=== PATIENT | male | born 1990 | race Caucasian/White ===

== ENCOUNTER 2016-12-03 19:26 | Emergency (ER) | payer SELFPAY | END 2016-12-03 20:58 | disposition home or self-care (01) | LOC: D.ER 19:26 | DX: S93.601A Unspecified sprain of right foot, initial encounter (principal); X58.XXXA Exposure to other specified factors, initial encounter; Y93.89 Activity, other specified; Y92.89 Other specified places as the place of occurrence of the external cause; F17.200 Nicotine dependence, unspecified, uncomplicated ==

== ENCOUNTER 2017-08-15 18:14 | Emergency (ER) | payer BC | END 2017-08-15 21:16 | disposition home or self-care (01) | LOC: D.ER 18:14 | DX: M54.5 Low back pain (principal); M62.838 Other muscle spasm; M54.30 Sciatica, unspecified side; F17.200 Nicotine dependence, unspecified, uncomplicated ==

== ENCOUNTER 2017-10-28 10:19 | Emergency (ER) | payer MEDICAID | END 2017-10-28 12:21 | disposition home or self-care (01) | LOC: D.ER 10:19 | DX: L03.115 Cellulitis of right lower limb (principal) ==

== ENCOUNTER 2018-08-18 03:41 | Emergency (ER) | payer MEDICAID ==
[~2018-08-18] VITALS: Ht 160 cm; Wt 96.8 kg
[2018-08-18 03:48] VITALS: Ht 160 cm; Wt 96.8 kg
[2018-08-18 04:28] LABS: APPEARANCE CLEAR (CLEAR); BILIRUBIN NEGATIVE (NEGATIVE); COLOR YELLOW (YELLOW); GLUCOSE NEGATIVE (NEGATIVE); KETONE NEGATIVE (NEGATIVE); NITRITE NEGATIVE (NEGATIVE); PROTEIN NEGATIVE (NEGATIVE); UROBILINOGEN NORMAL (NORMAL)
[2018-08-18] MEDS ORDERED: NAPROSYN500 MG PO (05:31)
[2018-08-18] MEDS ORDERED: STERAPRED DS 1010 MG PO (05:31)
[2018-08-18 06:05] VITALS: BP 140/90
== END 2018-08-18 06:07 | disposition home or self-care (01) ==
LOC: D.ER 03:41
PROVIDERS: Family Medicine
DX: M54.16 Radiculopathy, lumbar region (principal); F17.200 Nicotine dependence, unspecified, uncomplicated

== ENCOUNTER 2020-12-11 20:07 | Emergency (ER) | payer MEDICAID ==
[~2020-12-11] VITALS: Ht 160 cm; Wt 90.9 kg
[~2020-12-11 20:07] MED LIST: NAPROSYN500 MG PO; STERAPRED DS 1010 MG PO
[2020-12-11 20:10] VITALS: BP 122/83; Ht 160 cm; Wt 90.9 kg
[2020-12-11 21:02] LABS: BASOPHILS 0.3 % (0-2); EOSINOPHILS 2.7 % (0-7); HEMATOCRIT 40.5 % (42.0-54.0); IMMATURE GRANULOCYTES 0.2 % (0-5); LYMPHOCYTE ABS# 1.06 10x3/uL (1.32-3.57); LYMPHOCYTES 18.1 % (15-50); MCH 26.5 pg (26.0-34.0); MCHC 32.1 g/dL (31.0-37.0); MCV 82.5 fL (80.0-100.0); MEAN PLATELET VOLUME 8.8 fL (7.4-10.4); NEUTROPHIL ABS# 4.14 10x3/uL (1.78-5.38); NEUTROPHILS 70.7 % (40-80); PLATELET COUNT 356 10x3/uL (130-400); RBC 4.91 10x6/uL (4.20-6.10); RDW 13.5 % (11.5-14.5); WBC 5.9 10x3/uL (4.8-10.8)
--- NOTE | 2020-12-11 21:12 | NUR ---
DR PAULSON NOTIFIED AND REVIEWED PT's BEHAVIOR AND ASSESSMENT RESULT, PT IS A LOWRISK PER DR PAULSON. DR PAULSON STATED TO GIVE RESOURCES TO PT AT TIME OF DISCHARGE. NO FURTHER ORDERS AT THIS TIME. RESOURCES REVIEWED WITH PT AND HE VERBAKLIZED UNDERSTANDING.
[2020-12-11 21:13] LABS: CALC OSMOLALITY 273 mosm/kg (275-300); CALCIUM 9.3 mg/dL (8.5-10.1); CARBON DIOXIDE 32.2 mmol/L (21.0-32.0); CHLORIDE - SERUM 100 mmol/L (98-107); CREATININE - SERUM 0.9 mg/dL (0.6-1.3); GLUCOSE 100 mg/dL (74-106); POTASSIUM - SERUM 3.8 mmol/L (3.5-5.1); SODIUM 138 mmol/L (136-145); UREA NITROGEN 8 mg/dL (7-18); eGFR NON AFRICAN AMERICAN > 90 mL/min (90-120)
[2020-12-11 21:19] LABS: ALKALINE PHOSPHATASE 97 U/L (30-120); ALT (SGPT) 27 U/L (10-68); BILIRUBIN - TOTAL 0.62 mg/dL (0.2-1.3); PROTEIN - SERUM 7.4 g/dL (6.4-8.2); URIC ACID 9.7 mg/dL (2.6-7.2)
[2020-12-11 21:25] LABS: C-REACTIVE PROTEIN 37.1 mg/dL (0.0-0.9)
[2020-12-11] MEDS ORDERED: DICLOFENAC SODI50 MG PO (21:34)
[2020-12-11 22:06] LABS: ERYTHROCYTE SEDIMENTATION RATE 67 mm/hr (0-15)
== END 2020-12-11 22:13 | disposition home or self-care (01) ==
LOC: D.ER 20:07
PROVIDERS: Family Medicine
DX: M25.521 Pain in right elbow (principal); R79.82 Elevated C-reactive protein (CRP)